=== PATIENT | male | born 1985 | race Caucasian/White ===

== ENCOUNTER 2017-09-03 10:50 | Emergency (ER) | payer SELFPAY ==
[~2017-09-03] VITALS: Ht 175.3 cm; Wt 104.5 kg
[~2017-09-03 10:50] MED LIST: AMOXICILLIN 50500 MG PO; ATIVAN0.5 MG PO; CELEXA10 MG PO; CEPHALEXIN500 M1 PO; CLEOCIN HC150 MG/CAP PO; FLEXERIL 1010 MG/TAB PO; FLEXERIL10 MG PO; LOPRESSOR50 MG PO; METOPROLOL50 MG PO; NO HOME MEDICATIONS; NORCO 325 MG-51 TAB PO; PEN-VEE K500 MG PO; PERCOCET 325 MG1 TA2 PO; PROZAC 10MG10 MG PO; RISPERDAL 0.20.25 MG PO; ROBAXIN500 MG PO; ZYPREXA2.5 MG PO
[2017-09-03 10:57] VITALS: TEMP 98
[2017-09-03 11:43] VITALS: BP 114/96; PULSE 80
[2017-09-03] MEDS ORDERED: NORCO 325 MG-51 TAB PO (13:07)
[2017-09-03] MEDS ORDERED: AMOXICILLIN 50500 MG PO (13:07)
== END 2017-09-03 11:46 | disposition home or self-care (01) ==
LOC: COL.ER 10:50
DX: R22.0 Localized swelling, mass and lump, head (principal)